=== PATIENT | female | born 1985 | race African-American/Black ===

== ENCOUNTER 2016-11-21 09:43 | Emergency (ER) | payer OTHER ==
[~2016-11-21] VITALS: Ht 162.6 cm; Wt 106.1 kg
--- NOTE | ~2016-11-21 | EKG ---
[address] [place] [address] ELECTROCARDIOGRAM REPORT Name: HUA CHISHOLMEMILY Michele [id number] Admission: 11/21/16 Attend Phys: Discharge: 11/21/16 Date of : 83 Report #: [id number] THIS REPORT FOR: //name// [facility] ED Test Date: 2016-11-21 Test Time: 11:06:00 Pat Name: KARMEN CHISHOLM Department: Room: Gender: F Community Service Technician: [place] : 1985 Requested By: Katlin Pacheco Order Number: [id number] MD: Caden Hurley Measurements Intervals [place] Rate: 70 P: 29 NE: 175 QRS: 0 QRSD: 89 T: 11 QT: 405 QTc: 437 Interpretive Statements Sinus rhythm No significant abnormality No previous ECG available for comparison Electronically Signed On 11-22-2016 7:51:00 CDT by Caden Hurley [email or web address] <ELECTRONICALLY SIGNED> By: Caden Hurley MD, [facility] 11/22/16 [id number] Caden Hurley MD, FACC /EPI
[~2016-11-21 09:43] MED LIST: DOXYCYCLINE 10100 MG PO; ULTRAM 50MG TAB50 MG PO
[2016-11-21 11:28] LABS: ABSOLUTE NEUTROPHILS 2.3 thou/uL (1.4-8.2); BASOPHILS 1.3 % (0.0-2.0); EOSINOPHILS 4.7 % (0.0-3.0); HEMATOCRIT 29.8 % (37.0-47.0); HEMOGLOBIN 9.5 gm/dL (12.0-15.0); LYMPHOCYTES 34.4 % (24.0-44.0); MANUAL DIFF NO; MCH 22.2 pg (26.0-34.0); MCV 69.5 fL (80.0-100.0); PLATELET COUNT 255 thou/uL (150-400); POLYS 50.6 % (36.0-66.0); RBC 4.28 mil/uL (4.20-5.00); RDW 20.4 % (10.5-14.5); WBC 4.5 thou/uL (4.0-11.0)
[2016-11-21 11:28] LABS: URINE BILIRUBIN NEGATIVE (Negative); URINE BLOOD 2+ (Negative); URINE COLOR YELLOW; URINE GLUCOSE-RANDOM* NEGATIVE (Negative); URINE KETONES NEGATIVE (Negative); URINE LEUKOCYTES-REFLEX NEGATIVE (Negative); URINE PROTEIN (DIPSTICK) NEGATIVE (Negative); URINE UROBILINOGEN 0.2 E.U./dl (0.2-1.0)
[2016-11-21 11:36] LABS: ANION GAP 7 mmol/L (7-16); BUN 8 mg/dL (7-18); CALCIUM 8.3 mg/dL (8.5-10.1); CHLORIDE 109 mmol/L (98-107); CO2 25 mmol/L (21-32); CREATININE 0.9 mg/dL (0.6-1.0); GLUCOSE 89 mg/dL (74-106); POTASSIUM 3.6 mmol/L (3.5-5.1); SODIUM 141 mmol/L (136-145)
[2016-11-21 11:37] LABS: SQUAMOUS 0-3 Few /LPF (0-3)
[2016-11-21 11:38] LABS: CASTS None Seen /LPF (None Seen); CRYSTALS None Seen /LPF (None Seen); URINE RBC None Seen /HPF (0-2); URINE WBC-REFLEX None Seen /HPF (0-5)
[2016-11-21 11:44] LABS: ALBUMIN 2.9 g/dL (3.4-5.0); ALKALINE PHOSPHATASE 45 U/L (46-116); SGOT 21 U/L (15-37); SGPT 16 U/L (30-65); TOTAL BILIRUBIN 0.2 mg/dL (<0.1-1.0); TROPONIN-I < 0.04 ng/mL (<0.04-0.07)
[2016-11-21 11:51] LABS: ANISOCYTOSIS 1+; HYPOCHROMASIA 1+; MICROCYTES 2+; PLATELET ESTIMATE NORMAL; POLYCHROMASIA SLIGHT
[2016-11-21] MEDS ORDERED: NAPROSYN500 MG PO (12:27)
[2016-11-21] MEDS ORDERED: NORFLEX100 MG PO (12:27)
[2016-11-21 13:29] VITALS: BP 130/71
== END 2016-11-21 12:17 | disposition home or self-care (01) ==
LOC: ER 09:43
PROVIDERS: Physician Assistant
DX: R10.9 Unspecified abdominal pain (principal); M54.9 Dorsalgia, unspecified; D64.9 Anemia, unspecified; F17.210 Nicotine dependence, cigarettes, uncomplicated; Z88.1 Allergy status to other antibiotic agents

== ENCOUNTER → 2020-03-23 | Emergency (ER) | payer OTHER ==
[~2020-03-23] MED LIST changes: +NAPROSYN500 MG PO; +NORFLEX100 MG PO
== END ==
LOC: ER 22:58
DX: M54.9 Dorsalgia, unspecified (principal); Z53.21 Procedure and treatment not carried out due to patient leaving prior to being seen by health care provider

== ENCOUNTER 2020-06-01 10:01 | Emergency (ER) | payer OTHER ==
[~2020-06-01] VITALS: Ht 162.6 cm; Wt 106.1 kg
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
[2020-06-01] MEDS ORDERED: NOHOMEMEDICATIONS (10:26)
[2020-06-01 10:56] LABS: URINE BILIRUBIN NEGATIVE (Negative); URINE BLOOD NEGATIVE (Negative); URINE CLARITY CLEAR; URINE COLOR YELLOW; URINE GLUCOSE-RANDOM* NEGATIVE (Negative); URINE KETONES 1+ (Negative); URINE LEUKOCYTES-REFLEX NEGATIVE (Negative); URINE NITRITE-REFLEX NEGATIVE (Negative); URINE PROTEIN (DIPSTICK) NEGATIVE (Negative); URINE UROBILINOGEN 0.2 E.U./dl (0.2-1.0)
[2020-06-01 11:03] LABS: ABSOLUTE NEUTROPHILS 5.5 thou/uL (1.4-8.2); BASOPHILS 0.8 % (0.0-2.0); EOSINOPHILS 0.4 % (0.0-3.0); HEMATOCRIT 29.4 % (37.0-47.0); HEMOGLOBIN 9.1 gm/dL (12.0-15.0); LYMPHOCYTES 23.3 % (24.0-44.0); MCH 22.1 pg (26.0-34.0); MCHC 31.1 g/dL (28.0-37.0); MCV 71.1 fL (80.0-100.0); MONOCYTES 9.8 % (1.0-8.0); PLATELET COUNT 383 thou/uL (150-400); POLYS 65.7 % (36.0-66.0); RBC 4.13 mil/uL (4.20-5.00); RDW 17.9 % (10.5-14.5); WBC 8.3 thou/uL (4.0-11.0)
[2020-06-01 11:08] LABS: AMP/METHAMP Negative (Negative); BARBITURATES Negative (Negative); BENZODIAZEPINES Negative (Negative); COCAINE Negative (Negative); METHADONE Negative (Negative); OPIATES Negative (Negative); PCP Negative (Negative)
[2020-06-01 11:14] LABS: ANION GAP 13 mmol/L (7-16); BUN 11 mg/dL (7-18); CALCIUM 9.1 mg/dL (8.5-10.1); CHLORIDE 101 mmol/L (98-107); CO2 23 mmol/L (21-32); CREATININE 0.8 mg/dL (0.6-1.0); GLUCOSE 90 mg/dL (74-106); POTASSIUM 4.7 mmol/L (3.5-5.1); SODIUM 137 mmol/L (136-145)
[2020-06-01 11:18] LABS: SALICYLATE 13.1 mg/dL (2.8-20.0)
[2020-06-01 12:19] LABS: ANISOCYTOSIS 1+; BURR CELLS 2+; MICROCYTES 2+; PLATELET ESTIMATE NORMAL
[2020-06-01 14:28] VITALS: BP 124/66
== END 2020-06-01 14:49 | disposition home or self-care (01) ==
LOC: ER 10:01
PROVIDERS: Emergency Medicine
DX: R05 Cough (principal); F41.9 Anxiety disorder, unspecified; F17.210 Nicotine dependence, cigarettes, uncomplicated; Z88.1 Allergy status to other antibiotic agents; Z20.828 Contact with and (suspected) exposure to other viral communicable diseases

== ENCOUNTER 2020-06-06 21:26 | Emergency (ER) | payer OTHER ==
[~2020-06-06] VITALS: Ht 162.6 cm; Wt 108.0 kg
[~2020-06-06 21:26] MED LIST changes: +NOHOMEMEDICATIONS
[2020-06-06 22:07] LABS: ABSOLUTE NEUTROPHILS 4.6 thou/uL (1.4-8.2); BASOPHILS 0.7 % (0.0-2.0); EOSINOPHILS 1.5 % (0.0-3.0); HEMATOCRIT 36.5 % (37.0-47.0); HEMOGLOBIN 11.2 gm/dL (12.0-15.0); LYMPHOCYTES 31.8 % (24.0-44.0); MCH 21.7 pg (26.0-34.0); MCHC 30.8 g/dL (28.0-37.0); MCV 70.5 fL (80.0-100.0); MONOCYTES 11.2 % (1.0-8.0); PLATELET COUNT 385 thou/uL (150-400); POLYS 54.8 % (36.0-66.0); RBC 5.17 mil/uL (4.20-5.00); RDW 18.6 % (10.5-14.5); WBC 8.4 thou/uL (4.0-11.0)
[2020-06-06 22:35] LABS: ANISOCYTOSIS 2+; BURR CELLS 1+; HYPOCHROMASIA 2+; MICROCYTES 1+; POLYCHROMASIA 1+
[2020-06-06 22:46] LABS: URINE BILIRUBIN NEGATIVE (Negative); URINE BLOOD NEGATIVE (Negative); URINE CLARITY CLEAR; URINE COLOR YELLOW; URINE GLUCOSE-RANDOM* NEGATIVE (Negative); URINE KETONES NEGATIVE (Negative); URINE LEUKOCYTES-REFLEX TRACE (Negative); URINE NITRITE-REFLEX NEGATIVE (Negative); URINE PROTEIN (DIPSTICK) NEGATIVE (Negative); URINE SPECIFIC GRAVITY <= 1.005 (1.005-1.035); URINE UROBILINOGEN 0.2 E.U./dl (0.2-1.0)
[2020-06-06 22:54] LABS: AMP/METHAMP Negative (Negative); BARBITURATES Negative (Negative); BENZODIAZEPINES Negative (Negative); COCAINE Negative (Negative); METHADONE Negative (Negative); OPIATES Negative (Negative); PCP Negative (Negative)
[2020-06-06 23:07] LABS: CREATININE 0.9 mg/dL (0.6-1.0); POTASSIUM 3.6 mmol/L (3.5-5.1)
[2020-06-06 23:52] VITALS: BP 128/48
== END 2020-06-06 23:53 | disposition home or self-care (01) ==
LOC: ER 21:26
PROVIDERS: Emergency Medicine
DX: F41.9 Anxiety disorder, unspecified (principal); F17.210 Nicotine dependence, cigarettes, uncomplicated; Z88.8 Allergy status to other drugs, medicaments and biological substances

== ENCOUNTER 2020-07-31 00:52 | Emergency (ER) | payer OTHER ==
[~2020-07-31] VITALS: Ht 157.5 cm; Wt 77.1 kg
[2020-07-31] MEDS ORDERED: AMBIEN 5 MG TABL5 M1 PO (02:22)
[2020-07-31 06:00] VITALS: BP 150/78
== END 2020-07-31 06:00 | disposition home or self-care (01) ==
LOC: ER 00:52
DX: F41.9 Anxiety disorder, unspecified (principal); G47.00 Insomnia, unspecified; F17.210 Nicotine dependence, cigarettes, uncomplicated; Z88.1 Allergy status to other antibiotic agents